=== PATIENT | female | born 1970 | race Caucasian/White ===

== ENCOUNTER 2023-01-08 00:16 | Day surgery (SDC) | payer BC, SELFPAY ==
[2023-01-02 13:01] VITALS: BMI 30.6
--- NOTE | 2023-01-02 13:04 | PC.NURSE ---
Report to the Outpatient Waiting Room, entrance under the green pavilion located off [facility], at time 1215 on date 01/08/23. Planned Procedure Time: 1415. Time changes happen often and if your time is changed the preop area will call you the afternoon before. - You and your visitor will be asked to self-screen and do not enter if you have any COVID symptoms. - A mask is optional within the hospital at this time. Patients may have clear liquids (water, carbonated beverages, clear teas, apple juice) until 3 hours prior to surgery with a maximum of 20 ounces. - No food from midnight until time of surgery Take the following medications with a SIP of water the morning of surgery: NONE DO NOT STOP ANY OF YOUR OTHER PRESCRIPTION MEDICATIONS PRIOR TO SURGERY ?EXCEPT THE FOLLOWING Medications to discontinue per physician: N/A Date to take last dose: N/A Please no make-up, nail romansh, hairspray, perfume, deodorant, or body powder the day of surgery. No jewelry (including any body piercings) or valuables the day of surgery, leave them at home. Please take a shower or bath the night before, or the morning of, surgery with an antibacterial soap. Wear comfortable, loose fitting clothing. - Jewelry must be removed prior to entering the operating room. Rings and piercings that are not removed may be cut off. - The hospital will not accept responsibility for valuables. - Please leave all valuables, including medications, at home the day of surgery. If you are going home after surgery, a licensed laborer driver must drive you home. - NO public transportation without another adult if you receive anesthesia. - We recommend that an adult stay with you for 24 hours following discharge. - We also recommend that you do not drive, make important decision, drink alcoholic beverages, or take any drugs that were not prescribed by your health care provider for at least 24 hours after your discharge time. Follow any additional instructions given to you from your surgeon. If you or anyone in your household have experienced Covid symptoms in the past week, please notify your surgeon or the nurse liaison at the phone number below for possible testing. Telephone instructions given to PT - EDILBERTO JACOBS and asked if any additional questions and then verbalized understanding. Patient advised to call surgeon office or pre surgery nurse liaison [phone] if any additional questions.
--- NOTE | 2023-01-08 09:49 | WPDHPUPDATE1 ---
History and Physical Update Update Date/Time: 01/08/23 09:49 History and Physical has been reviewed, including an updated exam of the patient. There are NO changes in the patient's condition. Risks, benefits, and alternatives have been discussed and questions answered. Patient agrees to proceed with procedure.
--- NOTE | 2023-01-08 09:49 | PM.HPGS ---
History of Present Illness History of Present Illness Consent: Risks, benefits, and alternatives have been discussed and questions answered. Patient agrees to proceed with procedure. Chief complaint: Post Menopausal Bleeding Narrative: Samanta Chance is a 52 year old female with approximately 6 weeks of spotting in the postmenopausal period. Patient underwent pelvic ultrasound which revealed a slightly thickened endometrium at 5 mm. It was recommended to undergo D&C hysteroscopy. Risks of infection, bleeding, perforation, and possible pathology were reviewed. Patient voiced understanding and agrees to proceed. Review of Systems Review of Systems: not repeated day of surgery; patient states no changes in status PMFSH Past Medical History Medical History (Updated 01/08/23 @ 09:53 by Zina Maki MD) Elevated cholesterol (normal spontaneous vaginal delivery) x1 Surgical History Surgical History (Updated 01/08/23 @ 09:52 by Zina Maki MD) History of elective x2 surgical and x1 medical History of laparoscopic cholecystectomy History of lumpectomy of left breast benign pathology 1998 Hx of laparoscopy patient had benign tumor removed in 1998 she is unsure what this was Social History Social History Smoking packs per day: 0.5 Smoking cigarettes per day: 10.0 Years smoked: 17 Smoking pack-years: 8.50 Smoking status: Current every day smoker Tobacco type: cigarettes Alcohol intake: never Substance use: never Substance use type: does not use Living arrangements: with family Spiritual care concerns: No Meds Home Medications and Allergies Home Medications Medication Instructions Recorded Confirmed Type estradiol 0.045 mg-levonorgestrel 1 patch transdermal WEEKLY 01/02/23 01/02/23 History 0.015 mg/24hr weekly transderm patch (Climara Pro) Allergies Allergy/AdvReac Type Severity Reaction Status Date / Time No Known Allergies Allergy Unverified 01/02/23 13:00 Exam Const: General: healthy appearing and alert Orientation/consciousness: patient oriented x3 Resp: Effort & Inspection: normal respiratory effort GI: GI Palp: Yes Soft to palpation, No Tenderness to palpation present (GI) and No Palpable mass present : External Female Exam: normal external appearance Speculum Exam - Vagina: normal appearance of the vagina and normal vaginal discharge Speculum Exam - Cervix: normal appearance of the cervix Bimanual exam- vagina & uterus: uterine size normal and consistency normal Bimanual Exam- Adnexa, other: normal adnexae and No adnexal tenderness Neuro: General: patient oriented x3 Assessment and Plan Assessment and plan (1) Post-menopausal bleeding: Code(s): N95.0 - Postmenopausal bleeding Status: Acute Assessment and Plan: plan to proceed with D&C hysteroscopy
[2023-01-08 11:50] VITALS: BP 117/51; PULSE 80; RESP 16; TEMP 36.6; O2SAT 98
[2023-01-08] MEDS: ACETAMINOPHEN 500 MG TABLET 1000 MG PO (12:00)
[2023-01-08] MEDS: LACTATED RINGERS 1,000 ML 30 ML IV CONT (12:08)
--- NOTE | 2023-01-08 12:13 | P.PNAN_ITS ---
Anes - Initial Pre Proc Eval Procedure: Operation Date: 01/08/23 14:15 Proposed Procedures p Hysteroscopy Dilation and Curettage - Zina Maki MD Date/Time: 01/08/23 12:13 Surgeon: Zina Maki MD Pre Op Diagnosis: Post Menopausal Bleeding Patient Data Age: 52 Gender: F Height: 1.59 m Weight: 75.3 kg Last Vital Signs Temp 36.6 C 01/08/23 11:50 Pulse 80 01/08/23 11:50 Resp 16 01/08/23 11:50 BP 117/51 L 01/08/23 11:50 Pulse Ox 98 01/08/23 11:50 O2 Del Method Room Air 01/08/23 11:50 Allergies Allergy/AdvReac Type Severity Reaction Status Date / Time No Known Allergies Allergy Unverified 01/08/23 11:57 Home Medications Medication Instructions Recorded Confirmed Type estradiol 0.045 mg-levonorgestrel 1 patch transdermal WEEKLY 01/02/23 01/02/23 History 0.015 mg/24hr weekly transderm patch (Climara Pro) Patient hx anesthesia problems: none Family hx anesthesia problems: none Results Review: All pre-operative results and documents have been reviewed as part of the pre- operative evaluation. PMFSH Past Medical History Medical History Elevated cholesterol (normal spontaneous vaginal delivery) x1 Surgical History Surgical History History of elective x2 surgical and x1 medical History of laparoscopic cholecystectomy History of lumpectomy of left breast benign pathology 1998 Hx of laparoscopy patient had benign tumor removed in 1998 she is unsure what this was Social History Social History Smoking packs per day: 0.5 Smoking cigarettes per day: 10.0 Years smoked: 17 Smoking pack-years: 8.50 Smoking status: Current every day smoker Tobacco type: cigarettes Alcohol intake: never Substance use: never Substance use type: does not use Living arrangements: with family Spiritual care concerns: No Anes - Eval Final PreProcedure Day of Procedure 01/08/23 12:13 Patient weight: overweight Heart: regular rate and rhythm Lungs: clear to auscultation Airway: Mallampati scale class II Neurological: alert and oriented Last oral intake: >/= 8 hours ASA classification: II Emergent: no Anesthetic plan: proceed Anesthesia type and monitoring: general GIVS and standard monitoring Results Review: All pre-operative results and documents have been reviewed as part of the pre- operative evaluation. Informed Consent: The patient's anesthetic plan and its attendant risks and benefits were discussed with the patient/family/POA. Questions were solicited and answers provided to the satisfaction of the patient/family/POA.
--- NOTE | 2023-01-08 12:35 | P.OP_ITS ---
Procedure Note - Detailed Date of Procedure 01/08/23 Pre-op Diagnosis Post Menopausal Bleeding Post-op Diagnosis Same Procedure Performed D&C hysteroscopy Surgeon Zina aMki MD Anesthesia MAC Findings uterus sounds to 8cm and appears grossly atrophic Description of Procedure The patient is taken to the operating room and placed under anesthesia in the dorsal lithotomy position. She was prepped and draped in usual sterile fashion. Emerson speculum was placed in the vagina. Cervix is grasped on the anterior lip with a tenaculum. The uterus is attempted to be sounded and internal stenosis is noted. The cervix is dilated to a 5 Hegar. The sound is then able to be passed. The uterus sounds to 8cm. The hysteroscope was placed. No abnormalities are noted. The endometrium appears atrophic. The hysteroscope was removed and the sharp curette used to curette the endometrium until a good uterine cry was noted in all areas. All instruments are removed. Sponge, needle, and instrument counts are correct per the OR staff. Patient is awakened from anesthesia and taken to recovery in stable condition. Estimated Blood Loss 5 Drains No Packing No Pathology Yes ( endometrial curettings) Complications No immediate complications Condition Stable Disposition PACU
[2023-01-08 12:37] VITALS: BP 108/54; PULSE 80; RESP 16; O2SAT 93
[2023-01-08 13:05] VITALS: BP 100/61; PULSE 73; RESP 16
[2023-01-08 13:35] VITALS: BP 100/51; PULSE 52; RESP 16
== END 2023-01-08 13:51 | disposition home or self-care (01) ==
PROVIDERS: PCP Internal Medicine; Visit Provider Obstetrics & Gynecology Gynecology
PROC: 0U5B8ZZ Destruction of Endometrium, Via Natural or Artificial Opening Endoscopic (ICD-10-PCS; CPT 58563; principal; 2023-01-08 14:15)
DX: N95.0 Postmenopausal bleeding (principal); E78.00 Pure hypercholesterolemia, unspecified; F17.210 Nicotine dependence, cigarettes, uncomplicated
CPT/HCPCS: 58558; 88305; A9270; J2250; J2405; J2704; J3010; J7120